=== PATIENT | male | born 1955 | race Caucasian/White ===

== ENCOUNTER 2020-08-21 18:24 | Emergency (ER) | payer MEDICARE, OTHER ==
[2020-08-21 18:37] VITALS: RESP 18; TEMP 98.2
[2020-08-21] MEDS ORDERED: ACET/COD 300 MG/30 MG STARTER PACK 6 TAB BTL PO STA (19:49)
--- NOTE | 2020-08-21 19:49 | ED ---
ENT HPI - General Chief complaint: Dental/Oral Stated complaint: jaw problem Time Seen by Provider: 08/21/20 19:24 Source: patient, RN notes reviewed Mode of arrival: ambulatory Limitations: no limitations - History of Present Illness Initial comments: 64-year-old male presented presented with chief complaint of left-sided jaw pain, dental pain. Patient states he has a tooth that is bothering him on the left lower. Patient states they took an old antibiotic which seemed to help. Patient states felt like his jaw was locking up has no complaints that now. Denies any fevers chills states her some mild swelling on the left side. - Related Data Previous Rx's Medication Instructions Recorded Amoxicillin/Potassium Clav 1 tab PO Q12HR #20 tab 08/21/20 [Augmentin 875-125 Tablet] Allergies Allergy/AdvReac Type Severity Reaction Status Date / Time No Known Allergies Allergy Verified 08/21/20 18:33 Review of Systems ROS Statement: Those systems with pertinent positive or pertinent negative responses have been documented in the HPI. ROS Other: All systems not noted in ROS Statement are negative. Past Medical History Past Medical History: Hyperlipidemia, Hypertension, Prostate Disorder History of Any Multi-Drug Resistant Organisms: None Reported Past Surgical History: No Surgical Hx Reported Past Psychological History: No Psychological Hx Reported Smoking Status: Current every day smoker Past Alcohol Use History: None Reported Past Drug Use History: None Reported General Exam Limitations: no limitations General appearance: alert, in no apparent distress Head exam: Present: atraumatic, normocephalic, normal inspection Eye exam: Present: normal appearance, PERRL, EOMI. Absent: scleral icterus, conjunctival injection, periorbital swelling ENT exam: Present: mucous membranes moist, TM's normal bilaterally, normal external ear exam. Absent: normal oropharynx (Dental Christin left lower, missing dentition noted, no trismus, swan secretions well patient does have some mild swelling on the left mandibular region) Neck exam: Present: normal inspection, full ROM. Absent: tenderness, meningismus, lymphadenopathy Respiratory exam: Present: normal lung sounds bilaterally. Absent: respiratory distress, wheezes, rales, rhonchi, stridor Course Vital Signs 08/21/20 08/21/20 18:34 20:17 Temperature 98.2 F Pulse Rate 78 87 Respiratory 18 18 Rate Blood Pressure 122/74 96/70 O2 Sat by Pulse 95 94 L Oximetry Medical Decision Making - Medical Decision Making Patient does have some phlegm left along the left mandibular region may have underlying dental infection versus infected savilary patient will placed on Augmentin return parameters were discussed. Disposition Clinical Impression: Dental infection, Sialadenitis Disposition: HOME SELF-CARE Condition: Stable Instructions (If sedation given, give patient instructions): Sialoadenitis (ED) Additional Instructions: Please return to the Emergency Department if symptoms worsen or any other concerns. Prescriptions: Amoxicillin/Potassium Clav [Augmentin 875-125 Tablet] 1 tab PO Q12HR #20 tab Is patient prescribed a controlled substance at d/c from ED?: No Referrals: Nonstaff,Physician [Primary Care Provider] - 1-2 days Time of Disposition: 19:49
[2020-08-21 20:21] VITALS: BP 96/70; PULSE 87
== END 2020-08-21 20:21 | disposition home or self-care (01) ==
LOC: EC 18:24
DX: K11.20 Sialoadenitis, unspecified (principal); K04.7 Periapical abscess without sinus; I10 Essential (primary) hypertension; E78.5 Hyperlipidemia, unspecified; F17.200 Nicotine dependence, unspecified, uncomplicated
CPT/HCPCS: 99283